=== PATIENT | female | born 1980 | race Caucasian/White ===

== ENCOUNTER 2019-09-06 15:15 | Emergency (ER) | payer OTHER, MEDICAID, SELFPAY ==
[2019-09-06 15:22] VITALS: BP 106/54; PULSE 90; RESP 18; TEMP 36.8; O2SAT 99
--- NOTE | 2019-09-06 15:23 | ED.LOWEXIN ---
HPI - Extremity Injury (Lower) General Chief Complaint: Extremity Problem,Nontraumatic Stated Complaint: hip pain, had multiple surgeries Time Seen by Provider: 09/06/19 15:18 Source: patient Mode of arrival: Ambulatory Limitations: no limitations History of Present Illness HPI Narrative: Patient is a 38-year-old female with chronic left hip pain. She had a complication from prolonged labor and has had 6 surgeries on her hips since then. She moved to [facility] recently she has yet to establish care with anyone. She has been walking a lot she is having increasing pain of that left hip. She was told that eventually the hardware would need to be replaced she wants to make sure it does not need replace now. She does not typically take anything for pain but is asking for Toradol. MD complaint: hip injury Related Data Home Medications Medication Instructions Recorded Confirmed lisinopril 5 mg PO DAILY 09/06/19 09/06/19 metformin 500 mg PO BID 09/06/19 09/06/19 Allergies Allergy/AdvReac Type Severity Reaction Status Date / Time acetaminophen [ACETAMINOPHEN] Allergy Unknown HIVES Verified 09/06/19 15:26 Review of Systems Review of Systems Narrative: GENERAL: Denies chills,fever HEENT: Denies throat pain RESPIRATORY: Denies dyspnea, cough, wheezing CARDIOVASCULAR: Denies chest pain, palpitations GASTROINTESTINAL: Denies nausea, vomiting MUSCULOSKELETAL: See HPI SKIN: No rash, no laceration, no pruritus NEUROLOGIC: Denies weakness, dizziness, headache, numbness 8 point review of systems is negative except for those stated above and HPI Patient History Medical History Diabetes (Acute) Hypertension (Acute) Social History Smoking Status: Never smoker Exam Initial Vital Signs Initial Vital Signs: Vital Signs Temperature 98.2 F 09/06/19 15:22 Pulse Rate 90 09/06/19 15:22 Respiratory Rate 18 09/06/19 15:22 Blood Pressure 106/54 L 09/06/19 15:22 Pulse Oximetry 99 09/06/19 15:22 GENERAL: Well-appearing, well-nourished and in no acute distress. CARDIOVASCULAR: peripheral pulses in tact, cap refill <2 sec RESPIRATORY: No respiratory distress, speaks in full sentences without difficulty EXTREMITIES: Normal range of motion, no clubbing or edema. Neurovascularly intact Left lower extremity no pain with internal external rotation no pain to palpation. Distal pedal pulse intact. I did watch patient ambulate into the emergency department and she does have a limp. NEUROLOGICAL: Cranial nerves II through XII grossly intact. Normal gait and speech. SKIN: Warm, dry, no petechiae, no rashes or lesions. Course Orders Ordered: ED Orders 09/06/19 15:38 XR hip w pel if done LT 2V Stat Discontinued Medications Ketorolac Tromethamine (Toradol) 30 mg IM NOW ONE Stop: 09/06/19 15:39 Last Admin: 09/06/19 16:35 Dose: 30 mg Documented by: ROSA Vital Signs Vital signs: Vital Signs - 8 hr 09/06/19 15:22 09/06/19 16:00 09/06/19 16:54 Temperature 98.2 F Pulse Rate 90 68 Pulse Rate [Left Dorsalis Pedis] 80 Respiratory Rate 18 14 Blood Pressure 106/54 L 108/61 Pulse Oximetry 99 96 MDM - Extremity Injury (Lower) Imaging Data left hip: Radiologist's impression: PROCEDURE: XR HIP W PEL IF DONE LT 2V INDICATIONS: pain previous surgery TECHNIQUE: AP pelvis with lateral view(s) of the left hip(s). COMPARISON: [facility], , [id number] W PEL IF PERFORMED, 04/24/2016, 15:19. FINDINGS: Bones: No fractures or dislocations. Pelvic ring appears intact. No suspicious bony lesions. Left hip arthroplasty hardware is seen, without complication. No findings of failure or loosening are seen. Soft tissues: The visualized bowel gas pattern is normal. No suspicious soft tissue calcifications. Pelvic phleboliths are incidentally noted. IMPRESSION: Unremarkable left hip arthroplasty hardware. Dictated by: Dimitry Sahu M.D. on 09/06/2019 at 15:07 MDM Narrative Medical decision making narrative: No sign of hardware malfunction. Patient's pain is significantly controlled after Toradol. She is given orthopedic referral along with PCP referral information. Discharge Plan Departure Patient Disposition: Home Clinical Impression: Chronic left hip pain Discharge Date/Time: 09/06/19 16:55 Instructions: DI for Hip Pain Activity Restrictions/Additional Instructions: *You have been diagnosed with chronic left hip pain *What to do: X-ray does not show any change in hardware *Continue to take medications as directed Tylenol 1000 mg every 6 hours if needed for pain Ibuprofen 800 mg every 8 hours if needed for *Follow up with your primary care provider in 2-3 days *Return to ER if you should have or any new, worsening or concerning symptoms Prescriptions: No Action metformin 500 mg tablet 500 mg PO BID RF: 0 lisinopril 5 mg tablet 5 mg PO DAILY RF: 0 Referrals: [facility] [Provider Group]
--- NOTE | 2019-09-06 15:38 | DI.RAD.S_ITS ---
PROCEDURE: XR HIP W PEL IF DONE LT 2V INDICATIONS: pain previous surgery TECHNIQUE: AP pelvis with lateral view(s) of the left hip(s). COMPARISON: [facility], CR, [id number] W PEL IF PERFORMED, 04/24/2016, 15:19. FINDINGS: Bones: No fractures or dislocations. Pelvic ring appears intact. No suspicious bony lesions. Left hip arthroplasty hardware is seen, without complication. No findings of failure or loosening are seen. Soft tissues: The visualized bowel gas pattern is normal. No suspicious soft tissue calcifications. Pelvic phleboliths are incidentally noted. IMPRESSION: Unremarkable left hip arthroplasty hardware. Dictated by: Dimitry Sahu M.D. on 09/06/2019 at 15:07 Approved by: Dimitry Sahu M.D. on 09/06/2019 at 15:08
[2019-09-06 16:00] VITALS: PULSE 80
[2019-09-06] MEDS: KETOROLAC 60 MG/2 ML VIAL 30 MG IM (16:35)
[2019-09-06 16:54] VITALS: BP 108/61; PULSE 68; RESP 14; O2SAT 96
== END 2019-09-06 16:55 | disposition home or self-care (01) ==
PROVIDERS: Emergency Provider Emergency Medicine
DX: M25.552 Pain in left hip (principal)
CPT/HCPCS: 73502; 96372; 99282; 99283; J1885

== ENCOUNTER → 2020-04-06 15:33 | Outpatient (CLI) | payer OTHER, SELFPAY ==
--- NOTE | 2020-04-06 | DI.RAD.S_ITS ---
PROCEDURE: XR CHEST 1V INDICATIONS: POSITIVE SCREENING TECHNIQUE: One view of the chest was acquired. COMPARISON: None. FINDINGS: Surgical changes and devices: None. Lungs and pleura: Lungs are clear. No pleural effusions or pneumothorax. Mediastinum: Mediastinal contours appear normal. Heart size is normal. Bones and chest wall: No suspicious bony lesions. Overlying soft tissues appear unremarkable. IMPRESSION: No acute disease Dictated by: Ten Parks M.D. on 04/06/2020 at 16:56 Approved by: Ten Parks M.D. on 04/06/2020 at 16:56
[2020-04-08 14:25] LABS: QuantiFERON Mitogen Value >10.00 IU/mL (.); QuantiFERON TB Gold Plus Positive (Negative); QuantiFERON TB1 Ag Value 3.37 IU/mL (.); QuantiFERON TB2 Ag Value 3.06 IU/mL (.)
== END ==
DX: Z01.84 Encounter for antibody response examination (principal)
CPT/HCPCS: 36415; 71045; 86480

== ENCOUNTER 2021-10-05 16:20 | Emergency (ER) | payer OTHER, MEDICAID, SELFPAY ==
[2021-10-05 16:40] VITALS: BP 129/87; PULSE 90; RESP 16; TEMP 36.7; O2SAT 97; BMI 38.4
--- NOTE | 2021-10-05 20:08 | ED.SKABFB ---
HPI - Skin/Abscess/Foreign Bdy General Chief complaint: Skin/Abscess/Foreign Body Stated complaint: facial pain Time Seen by Provider: 10/05/21 19:06 Source: patient Mode of arrival: Ambulatory History of Present Illness HPI narrative: Patient is a 40-year-old female who is here for evaluation of sinus congestion and left-sided facial pain and swelling under her eyes and left-sided ear pain. She stated that her symptoms started approximately 3 days ago when she sneezed. She stated that she did try to hold this knee see afterwards she developed the symptoms that she presents with today. Has not tried anything for the symptoms prior to arrival. She does describe a sore throat along with the symptoms. No fevers. Does state that she had I have tenderness to palpation. Nothing really makes symptoms worse. Has not tried anything to make the symptoms better. Related Data Home Medications Medication Instructions Recorded Confirmed lisinopril 5 mg tablet 5 mg PO DAILY 09/06/19 09/06/19 metformin 500 mg tablet 500 mg PO BID 09/06/19 09/06/19 Previous Rx's Medication Instructions Recorded prednisone 20 mg tablet 20 mg PO DAILY 6 Days #6 tab 10/05/21 Allergies Allergy/AdvReac Type Severity Reaction Status Date / Time acetaminophen [ACETAMINOPHEN] Allergy Unknown HIVES Verified 09/06/19 15:26 Review of Systems Constitutional Constitutional: Reports system reviewed and no additional complaints, except as documented Eyes Eyes: Reports system reviewed and no additional complaints, except as documented ENT Ears, Nose, Mouth, and Throat: Reports system reviewed and no additional complaints, except as documented Respiratory Respiratory: Reports system reviewed and no additional complaints, except as documented Integumentary/Breasts Skin/Breast: Reports system reviewed and no additional complaints, except as documented Neurologic Neurologic: Reports system reviewed and no additional complaints, except as documented Hematologic/Lymphatic On Anticoagulants: No Patient History Medical History Diabetes Hypertension Social History Smoking Status: Never smoker Smoking Status: Never smoker alcohol intake frequency: 0-2 drinks per day Substance Use Type: does not use Exam Initial Vital Signs Initial Vital Signs: Vital Signs Temperature 98.1 F 10/05/21 16:40 Pulse Rate 90 10/05/21 16:40 Respiratory Rate 16 10/05/21 16:40 Blood Pressure 129/87 10/05/21 16:40 Pulse Oximetry 97 10/05/21 16:40 Const General: cooperative, healthy appearing, comfortable and well developed [facility] Head: normal to inspection Ears: EAC's normal, mastoids normal, no periauricular adenopathy and TM abnormal bulging on the left; Negative for not on the right and wth effusion; Negative for not erythematous Face and sinus: no edema and sinus tenderness maxillary Eyes General: appearance normal, both eyes and all related structures Resp Effort & Inspection: normal respiratory effort Cardio Rate: regular rate Skin General: no rashes or lesions noted Extrem General: normal to inspection and capillary refill normal Psych Appearance: grossly normal and well kempt Course Orders Ordered: Discontinued Medications Prednisone (Prednisone 20 Mg Tablet) 20 mg PO NOW ONE Stop: 10/05/21 20:09 Last Admin: 10/05/21 20:15 Dose: 20 mg Documented by: JACOBO Vital Signs Vital signs: Vital Signs - 8 hr 10/05/21 20:24 Pulse Rate 80 Respiratory Rate 98 H Blood Pressure 135/76 MDM - Skin/Abscess/Foreign Bdy MDM Narrative Medical decision making narrative: Patient does have symptoms consistent with sinus congestion that she does have a bulging tympanic membrane specifically on the left. There is no erythema associated. She does have left-sided maxillary sinus tenderness. I do suspect a upper respiratory infection. No indication for antibiotics as of right now. Will start the patient on decongestants. Will also put her on a short course of steroids and we also discussed using nasal sprays. She was given strict return precautions. She expressed understanding and agreement. Discharge Plan Departure Patient Disposition: Home Clinical Impression: Congestion of nasal sinus Instructions: Antihistamine/Decongestant (By mouth) Activity Restrictions/Additional Instructions: I do recommend that she purchase and start taking as directed and over counter antihistamine such as Claritin or Ioana or Zyrtec. The generic versions of these medicines is appropriate. You can also start a nasal spray such as Nasonex or Flonase. You can purchase these [id number] as well. We will start you on steroids. Please start taking them as directed. Return to the emergency department for any new or worsening symptoms. Prescriptions: New prednisone 20 mg tablet 20 mg PO DAILY 6 Days Qty: 6 0RF No Action metformin 500 mg tablet 500 mg PO BID 0RF Label Comments: TAKE 1 TABLET BY MOUTH TWICE DAILY lisinopril 5 mg tablet 5 mg PO DAILY 0RF
[2021-10-05] MEDS: predniSONE 20 MG TABLET PO (20:15)
[2021-10-05 20:24] VITALS: BP 135/76; PULSE 80; RESP 98
== END 2021-10-05 20:24 | disposition home or self-care (01) ==
PROVIDERS: Emergency Provider Emergency Medicine
DX: R09.81 Nasal congestion (principal); Z88.6 Allergy status to analgesic agent
CPT/HCPCS: 99283